=== PATIENT | male | born 1945 | race Caucasian/White ===

== ENCOUNTER 2018-01-25 10:43 | Emergency (ER) | payer MEDICARE ==
--- NOTE | 2018-01-25 13:39 | CT ---
CT CERVICAL SPINE WITHOUT CONTRAST: Date: 01/25/18 HISTORY: Neck pain. COMPARISON: None. FINDINGS: There is a Schmorl's node at superior end plate of T1, which is age-indeterminate. This is not defini tively acute. The mastoids are clear. Temporomandibular joints are unremarkable. Occipital condyles are intact. There appears to be a lytic process within the right posterior first r ib. Mild scarring in lung apices. IMPRESSION: 1. Superior end plate Schmorl's node at T1, age-indeterminate. 2. No acute fracture or malalignment of cervical spine. 3. Lytic process of the right posterior first rib near the neck with some cortical tunneling. This i s of unclear significance. A nuclear medicine bone scan may be beneficial in this patient. POS: [facility]
== END 2018-01-25 13:08 | disposition home or self-care (01) ==
LOC: ERS 10:43
DX: M89.9 Disorder of bone, unspecified (principal); M54.2 Cervicalgia; I10 Essential (primary) hypertension; F17.210 Nicotine dependence, cigarettes, uncomplicated; Z79.899 Other long term (current) drug therapy
CPT/HCPCS: 72125; 99406

== ENCOUNTER 2021-07-22 07:28 | Emergency (ER) | payer MEDICARE ==
[2021-07-22 08:01] LABS: #Eosinphils 0.1 thou/uL (0.0-0.7); #Monocytes 0.7 thou/uL (0.11-0.59); #Neutrophils 9.9 thou/uL (1.40-6.50); %Basophils 0.1 % (0.0-1.0); %Eosinophils 0.6 % (0.0-10.0); %Lymphocytes 8.9 % (21.0-51.0); %Monocytes 5.7 % (0.0-10.0); %Neutrophils 84.6 % (42.0-75.0); Hemoglobin 17.3 g/dL (14.0-18.0); Mean Corpuscular HGB CONC 32.7 g/dL (32.0-36.0); Mean Corpuscular Hemoglobin 32.8 pg (27.0-31.0); Mean Platelet Volume 7.3 fL (7.4-10.4); Platelet Count 204 thou/uL (130-400); RBC Distribution Width 12.4 % (11.5-14.5); Red Blood Cell (RBC) Count 5.27 mill/uL (4.70-6.10); White Blood Cell (WBC) Count 11.6 thou/uL (4.8-10.8)
[2021-07-22 08:25] LABS: ALT (SGPT) 21 U/L (8-55); AST (SGOT) 21 U/L (5-34); Alkaline Phosphatase 96 U/L (40-110); Anion Gap 12 mmol/L (10-20); BUN (Urea Nitrogen) 17 mg/dL (8.4-25.7); Bilirubin, Total 0.4 mg/dL (0.2-1.2); Calc. Creatinine Clearance 0 mL/min (70-130); Calcium 9.1 mg/dL (7.8-10.44); Carbon Dioxide 26 mmol/L (23-31); Chloride 101 mmol/L (98-107); Globulin 3.3 g/dL (2.4-3.5); Glucose 150 mg/dL (83-110); Protein, Total 7.3 g/dL (5.8-8.1); Sodium 135 mmol/L (136-145)
[2021-07-22 08:56] LABS: Bacteria/HPF None Seen HPF (None Seen); Bilirubin Negative (Negative); Blood, Urine 1+ (Negative); Clarity Clear (Clear); Glucose, Urine (Dipstick) Normal (Negative); Ketone, Urine Negative (Negative); Leukocyte Negative Leu/uL (Negative); Nitrite Negative (Negative); Protein, Urine (Dipstick) Negative (Neg-Trace); Specific Gravity, Urine 1.018 (1.002-1.036); Squamous Epithelial None Seen HPF (0-3); Urobilinogen Normal mg/dL (Less than 2); WBC/HPF 0-3 HPF (0-3); pH, Urine 5.5 (5.0-9.0)
[2021-07-22] MEDS ORDERED: Acetaminophen 500 MG TAB ONE (09:39)
== END 2021-07-22 10:45 ==
LOC: ERS 07:28
DX: R33.9 Retention of urine, unspecified (principal); R31.9 Hematuria, unspecified; I10 Essential (primary) hypertension; F17.210 Nicotine dependence, cigarettes, uncomplicated; Z79.899 Other long term (current) drug therapy; Z85.46 Personal history of malignant neoplasm of prostate
CPT/HCPCS: 36415; 51702; 51798; 80053; 81003; 81015; 85025; 87086

== ENCOUNTER 2021-08-16 10:49 | Outpatient (CLI) | payer MEDICARE | END 2021-08-16 10:50 | disposition home or self-care (01) | LOC: BICCT 10:49 | PROVIDERS: ATTEND Urology | DX: R31.0 Gross hematuria (principal); N28.9 Disorder of kidney and ureter, unspecified; I71.4 Abdominal aortic aneurysm, without rupture; N32.89 Other specified disorders of bladder; K80.20 Calculus of gallbladder without cholecystitis without obstruction; K76.9 Liver disease, unspecified; K44.9 Diaphragmatic hernia without obstruction or gangrene; K57.30 Diverticulosis of large intestine without perforation or abscess without bleeding | CPT/HCPCS: 74178 ==

== ENCOUNTER 2021-09-06 06:51 | Outpatient (CLI) | payer MEDICARE ==
[2021-09-06] MEDS ORDERED: Magnevist 469MG/ML 20 ML VIAL ONE (09:17)
== END 2021-09-06 06:52 | disposition home or self-care (01) ==
LOC: BICMRI 06:51
PROVIDERS: ATTEND Urology
DX: N28.89 Other specified disorders of kidney and ureter (principal); D18.03 Hemangioma of intra-abdominal structures
CPT/HCPCS: 74183; 82565

== ENCOUNTER 2021-09-12 07:12 | Day surgery (SDC) | payer MEDICARE ==
[2021-09-12] MEDS ORDERED: Vancomycin 1.5 GRAM/300 ML BAG 1.5 GM in Premix Bag 1 BAG IVPB SCH (08:00)
[2021-09-12] MEDS ORDERED: cefTRIAXone\\ROCEPHIN 2 GM in Sodium Chloride 0.9% 100 ML IVPB SCH (08:00)
[2021-09-12] MEDS ORDERED: Sodium Chloride 0.9% 100 ML ONE (08:05)
[2021-09-12] MEDS ORDERED: cefTRIAXone\\ROCEPHIN 2 GM VIAL ONE (08:05)
[2021-09-12] MEDS ORDERED: Fentanyl 100 MCG/2 ML VIAL ONE (08:45)
[2021-09-12] MEDS ORDERED: Lidocaine 1% PF 5 ML VIAL ONE (08:58)
[2021-09-12] MEDS ORDERED: PROPOFOL 200 MG/20 ML VIAL ONE (08:58)
[2021-09-12] MEDS ORDERED: ePHEDrine 50 MG/ML VIAL ONE (08:58)
[2021-09-12] MEDS ORDERED: PHENYLEPHRINE-NS 100 MCG/ML 10 ML SYRINGE ONE (08:58)
[2021-09-12] MEDS ORDERED: Dexamethasone 20 MG/5 ML VIAL ONE (08:58)
[2021-09-12] MEDS ORDERED: Ondansetron PF 4 MG/2 ML Vial ONE (08:58)
[2021-09-12] MEDS ORDERED: Acetaminophen 500 MG TAB PO PRN (10:23)
[2021-09-12] MEDS ORDERED: B & O 30 MG SUPP PR PRN (10:27)
[2021-09-12] MEDS ORDERED: Promethazine HCl 25 MG/ML VIAL IM/IV PRN (10:45)
[2021-09-12] MEDS ORDERED: Ondansetron HCl/PF 4 MG/2 ML Vial IVP PRN (10:45)
[2021-09-12] MEDS: D5 0.9% NS w/ 20 mEq KCl 1,000 ML IV SCH (17:20)
[2021-09-12] MEDS: Docusate 100 MG CAP PO SCH (20:13)
[2021-09-13] MEDS: D5 0.9% NS w/ 20 mEq KCl 1,000 ML IV SCH ×2 (05:38→14:54)
[2021-09-13] MEDS: Docusate 100 MG CAP PO SCH ×2 (09:35→19:58)
[2021-09-13] MEDS: cloNIDine 0.1 MG TAB PO SCH (09:35)
[2021-09-13] MEDS: Lisinopril/Hydrochlorothiazide 10 mg/12.5 mg Tablet PO SCH (09:35)
[2021-09-13] MEDS: cefTRIAXone\\ROCEPHIN 1 GM in Sodium Chloride 0.9% 100 ML IVPB SCH (09:41)
[2021-09-14] MEDS: D5 0.9% NS w/ 20 mEq KCl 1,000 ML IV SCH (00:31)
[2021-09-14] MEDS: cefTRIAXone\\ROCEPHIN 1 GM in Sodium Chloride 0.9% 100 ML IVPB SCH (08:58)
[2021-09-14] MEDS: cloNIDine 0.1 MG TAB PO SCH (08:58)
[2021-09-14] MEDS: Lisinopril/Hydrochlorothiazide 10 mg/12.5 mg Tablet PO SCH (08:58)
[2021-09-14] MEDS: Docusate 100 MG CAP PO SCH (08:58)
[2021-09-14 11:47] VITALS: BP 144/78; TEMP 97.6
[2021-09-15 09:16] LABS: CA Oxalate Dihydrate 20 % (.); CA Oxalate Monohydrate 80 % (.); Color Brown (.); Stone Weight 10 mg (.)
== END 2021-09-14 14:05 | disposition home or self-care (01) ==
LOC: SDC 07:12 → SURG A 10:23 → SDC 09-14 14:05
PROVIDERS: ATTEND Urology
PROC: 0T5B8ZZ Destruction of Bladder, Via Natural or Artificial Opening Endoscopic (ICD-10-PCS; principal; 2021-09-12)
PROC: 0VT08ZZ Resection of Prostate, Via Natural or Artificial Opening Endoscopic (ICD-10-PCS; 2021-09-12)
DX: N40.1 Benign prostatic hyperplasia with lower urinary tract symptoms (principal); N13.8 Other obstructive and reflux uropathy; R33.8 Other retention of urine; N21.0 Calculus in bladder; D41.4 Neoplasm of uncertain behavior of bladder; I10 Essential (primary) hypertension; F17.210 Nicotine dependence, cigarettes, uncomplicated; N32.89 Other specified disorders of bladder; Z86.73 Personal history of transient ischemic attack (TIA), and cerebral infarction without residual deficits; Z79.82 Long term (current) use of aspirin; Z79.899 Other long term (current) drug therapy
CPT/HCPCS: 82365; 88300; 88305; 93005; 93010; J0696; J1100; J2405; J2704; J3010; J3370; J3480; J3490